=== PATIENT | female | born 1980 | race Caucasian/White ===

== ENCOUNTER → 2019-04-15 | Outpatient (CLI) | payer BC, OTHER | LOC: LAB FS 10:25 | PROVIDERS: ATTEND Family Medicine | DX: Z01.89 Encounter for other specified special examinations (principal) | CPT/HCPCS: 36415; 84702 ==

== ENCOUNTER → 2019-09-14 | Outpatient (CLI) | payer BC ==
[2019-09-14 11:01] LABS: BILIRUBIN,URINE NEGATIVE (NEGATIVE); CLARITY,URINE CLOUDY; COLOR,URINE YELLOW; GLUCOSE, URINE (UA) NEGATIVE (NEGATIVE); KETONES,URINE TRACE (NEGATIVE); LEUKOCYTE ESTERASE ,URINE TRACE (NEGATIVE); NITRITE,URINE NEGATIVE (NEGATIVE); PROTEIN,URINE TRACE (NEGATIVE)
[2019-09-14 11:02] LABS: BACTERIA,URINE MODERATE /HPF
== END ==
LOC: RAD FS 10:11
PROVIDERS: ATTEND Family Medicine
DX: R31.9 Hematuria, unspecified (principal)
CPT/HCPCS: 81000; 87088

== ENCOUNTER → 2019-11-03 | Outpatient (CLI) | payer BC ==
[2019-11-03 15:09] LABS: BUN/CREATININE RATIO 16; CARBON DIOXIDE 20 MMOL/L (21-32); CHLORIDE 102 MMOL/L (98-107); CREATININE SERUM 0.61 MG/DL (0.60-1.30); GFR ESTIMATED > 60; GLUCOSE 120 MG/DL (70-105); POTASSIUM 3.7 MMOL/L (3.6-5.0); SODIUM 135 MMOL/L (135-145)
[2019-11-03 15:10] LABS: ALANINE AMINOTRANSFERASE 11 U/L (0-55); ALBUMIN 3.3 GM/DL (3.2-4.5); ALKALINE PHOSPHATASE 124 U/L (40-136); BILIRUBIN,TOTAL < 0.2 MG/DL (0.1-1.0); TOTAL PROTEIN 6.3 GM/DL (6.4-8.2)
[2019-11-03 15:13] LABS: BASOPHILS % (AUTO) 0 % (0-10); EOSINOPHILS % (AUTO) 1 % (0-10); HEMATOCRIT 31 % (35-52); HEMOGLOBIN 10.3 G/DL (11.5-16.0); LYMPHOCYTES # (AUTO) 2.2 X 10^3 (1.0-4.0); LYMPHOCYTES % (AUTO) 25 % (12-44); MEAN CORPUSCULAR HEMOGLOBIN 30 PG (25-34); MEAN CORPUSCULAR HGB CONC 33 G/DL (32-36); MEAN CORPUSCULAR VOLUME 92 FL (80-99); MEAN PLATELET VOLUME 9.5 FL (7.4-10.4); MONOCYTES # (AUTO) 0.7 X 10^3 (0.0-1.0); MONOCYTES % (AUTO) 8 % (0-12); NEUTROPHILS # (AUTO) 5.9 X 10^3 (1.8-7.8); NEUTROPHILS % (AUTO) 66 % (42-75); PLATELET COUNT 315 10^3/uL (130-400); RED CELL DISTRIBUTION WIDTH 13.8 % (10.0-14.5); WHITE BLOOD COUNT 8.9 10^3/uL (4.3-11.0)
[2019-11-03 15:14] LABS: EOSINOPHILS # (AUTO) 0.1 10^3/uL (0.0-0.3)
[2019-11-04 08:22] LABS: URIC ACID 4.3 MG/DL (2.6-7.2)
== END ==
LOC: LAB FS 13:54
PROVIDERS: ATTEND Family Medicine
DX: O13.9 Gestational [pregnancy-induced] hypertension without significant proteinuria, unspecified trimester (principal)
CPT/HCPCS: 36415; 80053; 82570; 83615; 84156; 84550; 85025; 87081

== ENCOUNTER → 2019-11-10 | Outpatient (CLI) | payer BC ==
[2019-11-10 15:01] LABS: HEMATOCRIT 30 % (35-52); HEMOGLOBIN 9.9 G/DL (11.5-16.0); MEAN CORPUSCULAR HEMOGLOBIN 30 PG (25-34); MEAN CORPUSCULAR HGB CONC 33 G/DL (32-36); MEAN CORPUSCULAR VOLUME 91 FL (80-99); MEAN PLATELET VOLUME 8.9 FL (7.4-10.4); PLATELET COUNT 309 10^3/uL (130-400); RED CELL DISTRIBUTION WIDTH 14.1 % (10.0-14.5); WHITE BLOOD COUNT 8.9 10^3/uL (4.3-11.0)
[2019-11-10 15:02] LABS: BASOPHILS % (AUTO) 0 % (0-10); EOSINOPHILS # (AUTO) 0.1 10^3/uL (0.0-0.3); EOSINOPHILS % (AUTO) 1 % (0-10); LYMPHOCYTES # (AUTO) 2.4 X 10^3 (1.0-4.0); LYMPHOCYTES % (AUTO) 27 % (12-44); MONOCYTES # (AUTO) 0.6 X 10^3 (0.0-1.0); MONOCYTES % (AUTO) 7 % (0-12); NEUTROPHILS # (AUTO) 5.7 X 10^3 (1.8-7.8); NEUTROPHILS % (AUTO) 64 % (42-75)
[2019-11-10 15:28] LABS: CHLORIDE 100 MMOL/L (98-107); POTASSIUM 3.8 MMOL/L (3.6-5.0); SODIUM 134 MMOL/L (135-145)
[2019-11-10 15:29] LABS: BUN/CREATININE RATIO 16; CARBON DIOXIDE 20 MMOL/L (21-32); CREATININE SERUM 0.64 MG/DL (0.60-1.30); GFR ESTIMATED > 60; GLUCOSE 83 MG/DL (70-105)
[2019-11-10 15:31] LABS: ALANINE AMINOTRANSFERASE 11 U/L (0-55); ALBUMIN 3.5 GM/DL (3.2-4.5); ALKALINE PHOSPHATASE 124 U/L (40-136); BILIRUBIN,TOTAL 0.2 MG/DL (0.1-1.0); CALCIUM 8.7 MG/DL (8.5-10.1); TOTAL PROTEIN 6.3 GM/DL (6.4-8.2)
[2019-11-10 15:42] LABS: BAND NEUTROPHILS 2 %; BASOPHILS % (MANUAL) 0 %; EOSINOPHILS % (MANUAL) 1 %; LYMPHOCYTES % (MANUAL) 25 %; METAMYELOCYTES % 1 %; MONOCYTES % (MANUAL) 8 %; NEUTROPHILS % (MANUAL) 63 %
[2019-11-11 14:43] LABS: URIC ACID 4.5 MG/DL (2.6-7.2)
== END ==
LOC: LAB FS 14:37
PROVIDERS: ATTEND Family Medicine
DX: O13.9 Gestational [pregnancy-induced] hypertension without significant proteinuria, unspecified trimester (principal)
CPT/HCPCS: 36415; 80053; 83615; 84550; 85007; 85027

== ENCOUNTER 2019-11-26 18:26 | Inpatient (IN) | payer BC ==
[~2019-11-26] VITALS: Ht 167.7 cm; Wt 115.6 kg
[2019-11-26] VITALS (13 sets, daily range): BP systolic 108–202; BP diastolic 58–116
--- NOTE | 2019-11-26 18:26 | NUR ---
ITZ ALVAREZ V presented to unit from Home, accompanied by , with c/o LABOR. ITZ ALVAREZ V weighed, gowned, voided, and to bed. EFHM and TOCO applied, VS taken. ITZ ALVAREZ V oriented to bed controls, call light, TV, heat, and A/C controls.
--- NOTE | 2019-11-26 19:30 | NUR ---
notified of pt's arrival and exam. orders received.
[2019-11-26] MEDS ORDERED: OXYTOCIN PRE-MIX DRIP 500 ML IV SCH (19:36)
[2019-11-26 19:44] LABS: BASOPHILS % (AUTO) 0 % (0-10); EOSINOPHILS # (AUTO) 0.1 10^3/uL (0.0-0.3); EOSINOPHILS % (AUTO) 1 % (0-10); HEMATOCRIT 33 % (35-52); HEMOGLOBIN 10.7 G/DL (11.5-16.0); LYMPHOCYTES # (AUTO) 2.1 X 10^3 (1.0-4.0); LYMPHOCYTES % (AUTO) 24 % (12-44); MEAN CORPUSCULAR HEMOGLOBIN 30 PG (25-34); MEAN CORPUSCULAR HGB CONC 33 G/DL (32-36); MEAN CORPUSCULAR VOLUME 92 FL (80-99); MEAN PLATELET VOLUME 9.8 FL (7.4-10.4); MONOCYTES # (AUTO) 0.7 X 10^3 (0.0-1.0); MONOCYTES % (AUTO) 8 % (0-12); NEUTROPHILS # (AUTO) 5.9 X 10^3 (1.8-7.8); NEUTROPHILS % (AUTO) 67 % (42-75); PLATELET COUNT 268 10^3/uL (130-400); RED CELL DISTRIBUTION WIDTH 16.1 % (10.0-14.5); WHITE BLOOD COUNT 8.7 10^3/uL (4.3-11.0)
[2019-11-26] MEDS ORDERED: MINERAL OIL CONCENTRATE 99.9% 15 ML UDC TOP PRN (19:45)
[2019-11-26] MEDS: D5 LR IV SOLUTION 1,000 ML IV SCH (21:00)
[2019-11-26] MEDS ORDERED: ASPI-999 PO (21:02)
[2019-11-26] MEDS ORDERED: PREN1TAB19 PO (21:02)
[2019-11-26] MEDS ORDERED: DOCU-143 PO (21:02)
[2019-11-26] MEDS ORDERED: FERR325T18 PO (21:02)
[2019-11-26] MEDS ORDERED: FOLI0.8C PO (21:02)
[2019-11-26] MEDS ORDERED: SUFENTA 0.6MCG/ML BUPIVA 0.125 100 ML ONE (22:11)
[2019-11-26] MEDS ORDERED: BUPIVACAINE 0.25% 30 ML (SENSORCAINE) VIAL ONE (22:32)
[2019-11-26] MEDS ORDERED: fentaNYL INJECTION 100 MCG/2 ML AMP ONE (22:32)
[2019-11-26] MEDS ORDERED: ONDANSETRON 4 MG/2 ML (SDV) Z0FRAN IV PRN (23:15)
[2019-11-26] MEDS ORDERED: NALOXONE 0.4 MG/ML 1 ML (NARCAN) VIAL IV PRN ×2 (23:15)
[2019-11-26] MEDS ORDERED: EPIDURAL (SUFENTA 0.6MCG/ML BUPIVA 0.125%) 100 ML BAG EPI PRN (23:15)
[2019-11-26] MEDS ORDERED: METOCLOPRAMIDE INJ 10 MG/2 ML (REGLAN) IV PRN (23:15)
[2019-11-26] MEDS ORDERED: diphenhydrAMINE 50 MG/ML INJ (BENADRYL) IV PRN (23:15)
[2019-11-26] MEDS ORDERED: LACTATED RINGERS 1,000 ML IV SCH (23:15)
[2019-11-27] VITALS (46 sets, daily range): BP systolic 96–141; BP diastolic 37–77
[2019-11-27] MEDS: D5 LR IV SOLUTION 1,000 ML IV SCH ×2 (00:12→08:06)
--- NOTE | 2019-11-27 06:58 | History & Physical-OB ---
OB - Chief Complaint & HPI Date/Time Date of Admission: Date of Admission: Nov 26, 2019 at 6:26 pm Date seen by a Provider: Nov 27, 2019 Time Seen by a Provider: 07:00 Chief Complaint/History OB-Reason for Admission/Chief: Onset of Labor Hx : 4 Hx Para: 0 Expected Date of Delivery: Dec 02, 2019 Gestational Age in Weeks: 39 Gestational Age in Days: 1 Admission Nurse Assessment Rev: Yes History of Labs O pos Antibody neg RI RPR NR HIV NR HBsAg NR GC neg GBS neg Allergies and Home Medications Allergies Coded Allergies: vancomycin (Verified Allergy, Unknown, HIVES, 11/26/19) Home Medications Aspirin 81 Mg Tab.chew, 81 MG PO DAILY, (Reported) Docusate Sodium 100 Mg Capsule, 100 MG PO DAILY, (Reported) Ferrous Sulfate 325 Mg Tablet, 325 MG PO DAILY, (Reported) Folic Acid 0.8 Mg Capsule, 0.8 MG PO DAILY, (Reported) Vit/Iron Fumarate/FA 1 Each Tablet, 1 EACH PO DAILY, (Reported) Patient Home Medication List Home Medication List Reviewed: Yes OB - History Hx of Present Care: Yes Ultrasounds: Normal mid trimester US Obstetrical Complications: None, Other (late transfer of care from Dr. Milian) Medical Complications: None Patient Past Medical History n/a Social History/Family History Recent Infectious Disease Expo: No Alcohol Use: Denies Use Recreational Drug Use: No OB - Admission Exam Physical Exam Vitals: Vital Signs 11/27/19 11/27/19 11/27/19 00:45 04:30 06:30 Temp 36.4 Pulse 110 Resp 18 B/P (MAP) 115/77 (90) Pulse Ox 97 O2 Delivery Room Air HEENT: NCAT Heart: Rhythm Normal Lungs: Clear, Wheezes Extremities: Normal Reflexes: Normal Cervical Dilatation: 1cm Effacement: 75% Station: -1 Membranes: Ruptured Amniotic Fluid: Clear Heart Rate: 130's Accelerations: Accelerations Present Decelerations: No Decelerations Short Term Variability: Present Flaring Machine Operator Variability: Average (6-25) Contractions on Admission: 6-10 Minutes Apart Intensity: Mild Labs Laboratory Tests Test 11/26/19 19:25 Range/Units White Blood Count 8.7 4.3-11.0 10^3/uL Red Blood Count 3.57 L 4.35-5.85 10^6/uL Hemoglobin 10.7 L 11.5-16.0 G/DL Hematocrit 33 L 35-52 % Mean Corpuscular Volume 92 80-99 FL Mean Corpuscular Hemoglobin 30 25-34 PG Mean Corpuscular Hemoglobin Concent 33 32-36 G/DL Red Cell Distribution Width 16.1 H 10.0-14.5 % Platelet Count 268 130-400 10^3/uL Mean Platelet Volume 9.8 7.4-10.4 FL Neutrophils (%) (Auto) 67 42-75 % Lymphocytes (%) (Auto) 24 12-44 % Monocytes (%) (Auto) 8 0-12 % Eosinophils (%) (Auto) 1 0-10 % Basophils (%) (Auto) 0 0-10 % Neutrophils # (Auto) 5.9 1.8-7.8 X 10^3 Lymphocytes # (Auto) 2.1 1.0-4.0 X 10^3 Monocytes # (Auto) 0.7 0.0-1.0 X 10^3 Eosinophils # (Auto) 0.1 0.0-0.3 10^3/uL Basophils # (Auto) 0.0 0.0-0.1 10^3/uL OB - Assessment/Plan/Diagnosis Assessment Assessment: rupture of membranes Admission Dx 39 yo @ 39 weeks SROM GBS neg Admission Status: Inpatient Order (span 2 midnights) Reason for Inpatient Admission: Active labor at term Plan Plan: Expectant Management (Pitocin augmentation if contraction pattern is inadequate) JESUS OTT DO Nov 27, 2019 6:58 am
[2019-11-27] MEDS ORDERED: LIDOCAINE/EPI 2% 1:200,00 (XYLOCAINE) 10 ML VIAL ONE (08:06)
[2019-11-27] MEDS ORDERED: CITRIC ACID/SOB CIT (BICITRA) 30 ML UDC ONE (08:56)
[2019-11-27] MEDS ORDERED: ceFAZolin 2 GM/50 ML NS 50 ML ONE (08:56)
[2019-11-27] MEDS ORDERED: FAMOTIDINE 20MG/2ML IV (PEPCID) ONE (08:56)
[2019-11-27] MEDS ORDERED: LIDOCAINE PF 2% 5 ML (XYLOCAINE) VIAL ONE (08:59)
[2019-11-27] MEDS ORDERED: fentaNYL INJECTION 100 MCG/2 ML AMP ONE (09:07)
[2019-11-27] MEDS ORDERED: KETAMINE/NaCl 50 MG/5 ML SYRINGE (ED ONLY) ONE (09:13)
[2019-11-27] MEDS ORDERED: CITRIC ACID/SOB CIT (BICITRA) 30 ML UDC PO ONE (09:15)
[2019-11-27] MEDS ORDERED: FAMOTIDINE 20MG/2ML IV (PEPCID) IV ONE (09:15)
[2019-11-27] MEDS ORDERED: METOCLOPRAMIDE INJ 10 MG/2 ML (REGLAN) IV ONE (09:15)
--- NOTE | 2019-11-27 09:16 | Progress Note ---
Standard Progress Note Progress Notes/Assess & Plan Date Seen by a Provider: Nov 27, 2019 Time Seen by a Provider: 08:55 Progress/Assessment & Plan Patient progressed to complete and 0 station noted at approx 0645 this morning. When I evaluated the patient then, she had little to no urge or pressure with her epidural controlling pain well. She was allowed to labor down over the next hour. When we began pushing she began having repetitive variable decelerations, some deeper than others. She pushed in different positions, and a FSE was placed. No progression in station was noted, at a point when variable decels had dropped to 60s, approx 35 min into pushing. I discussed with patient intolerance of 2nd stage labor as well as CPD, likely OP presentation. Discussed PLTCS, risk, benefit, recovery, and anesthesia. After all questions were answered consent was obtained and patient taken to OR. JESUS OTT DO Nov 27, 2019 9:16 am
[2019-11-27] MEDS ORDERED: ONDANSETRON 4 MG/2 ML (SDV) Z0FRAN IVP PRN (09:30)
[2019-11-27] MEDS ORDERED: MEASLES,MUMPS,RUBELLA 1 EA INJ SC SCH (09:30)
[2019-11-27] MEDS ORDERED: TETANUS,DIPTH,PERTUSS P/F (BOOSTRIX) 0.5 ML VIAL IM SCH (09:30)
[2019-11-27] MEDS ORDERED: BUPIVACAINE 0.5% 30 ML (SENSORCAINE) VIAL ONE (09:48)
[2019-11-27] MEDS: OXYTOCIN PRE-MIX DRIP 500 ML IV SCH ×2 (10:00→10:15)
[2019-11-27] MEDS ORDERED: ceFAZolin 2 GM/50 ML NS 50 ML IV ONE (10:15)
[2019-11-27] MEDS ORDERED: LACTATED RINGERS 1,000 ML IV ONE (10:30)
--- NOTE | 2019-11-27 10:30 | Discharge Inst-Women's Service ---
Discharge Inst-Women's Serv Depart Medication/Instructions New, Converted or Re-Newed RX: RX on Chart Final Diagnosis POD 2 PLTCS Problems Reviewed?: Yes Consults/Follow Up Additional Follow Up: Yes Orders/Referrals Dr. Bean in 7-10 days and in 6 weeks Activity Activity: Activity as Tolerated Driving Instructions: No Driving for 1 Week NO SMOKING: NO SMOKING Nothing Inside Vagina: No Douching, No Council, No Tampons Diet Discharge Diet: No Restrictions Symptoms to Report to : Bleeding Excessive, Pain Increased, Fever Over 101 Degrees F, Vaginal Bleeding Increase, Questions/Concerns For Any Problems or Questions: Contact Your Physician Skin/Wound Care Infection Signs and Symptoms: Increased Redness, Foul Odor of Wound, Increased Drainage, Skin Itchy or Has a Rash, Increased Swelling, Temperature Above 101 F Operative Area Clean and Dry: Keep Incision Clean/Dry Stitches/Freedom/Dermabond: Dermabond, Care of Stitches Bathing Instructions: JESUS Mar DO Nov 27, 2019 10:30 am
[2019-11-27] MEDS ORDERED: DOCU-244 PO (10:32)
[2019-11-27] MEDS ORDERED: ACHD5005 PO (10:32)
[2019-11-27] MEDS ORDERED: FERR325T18 PO (10:32)
[2019-11-27] MEDS ORDERED: IBUP-844 PO (10:32)
[2019-11-27] MEDS ORDERED: ONDANSETRON 4 MG/2 ML (SDV) Z0FRAN ONE (10:36)
[2019-11-27] MEDS ORDERED: KETOROLAC 30 MG/ML VIAL ONE (10:36)
[2019-11-27] MEDS: KETOROLAC 30 MG/ML VIAL IV SCH ×3 (10:40→21:29)
[2019-11-27] MEDS: ACETAMINOPHEN 500 MG TAB (TYLENOL) PO PRN (15:09)
[2019-11-27] MEDS: CATHETER FLUSH 10 ML SYR IV SCH ×2 (16:12→21:30)
--- NOTE | 2019-11-27 16:48 | OPERATIVE REPORT ---
DATE OF SERVICE: PREOPERATIVE DIAGNOSES: 1. A 39-year-old G4, at 39 weeks and 2 days gestation. 2. intolerance to second stage of labor. 3. Cephalopelvic disproportion. POSTOPERATIVE DIAGNOSES: 1. A 39-year-old G4, at 39 weeks and 2 days gestation. 2. intolerance to second stage of labor. 3. Cephalopelvic disproportion. 4. Nuchal cord x2. SURGEON: Ronaldo Bean DO ANESTHESIA: Epidural, which was bolused. ESTIMATED BLOOD LOSS: 400 mL. URINE OUTPUT: 200 mL, lightly pink tinged at the end of the procedure. FLUIDS: 1200 mL of lactated Ringer's solution. FINDINGS: A live female weighing 6 pounds 13 ounces, Apgars 9 and 9. Grossly normal appearing bilateral fallopian tubes and ovaries. Multiple subserosal fibroids of the posterior uterine fundus and going over the top of the uterine fundus. SPECIMEN SENT: Placenta. INDICATIONS FOR PROCEDURE: This 39-year-old female is a patient that I had assumed care over from Dr. Milian due to a licensing issue. Her last two appointments in the office I have seen the patient, she had had a history of mildly elevated blood pressures; however, no reason or indication for induction prior to 39 weeks. We had planned for a 39-week induction and having the patient come in on Wednesday night; however, she presented with rupture of membranes at the time of her induction. Therefore, her labor was augmented with Pitocin. She reached a maximum dose of the 10 milliunits of Pitocin during the time of augmentation. She did receive an epidural for analgesia. She progressed to complete and 0 station, at which point I presented to evaluate the patient. This morning, she was found to be complete and a trial pushing was attempted. There was no movement of the station. Therefore, I will allow the patient to labor down over an hour. When I came back to evaluate the patient, we removed the Mosley catheter and began pushing. Despite adequate maternal effort, there was no movement of station and based on scalp sutures, I was anticipating this baby being occiput posterior presentation. The infant also started reflecting signs of distress with heart rate decelerations that were variable with contractions, some of them dropping as low as 60 beats per minute. I discussed with the patient the remoteness from delivery, the disproportion I was assuming based upon no progression of station as well as the nonreassuring status during pushing and an intolerance of second stage of labor. I discussed with the patient proceed with primary delivery. Risks of procedure were discussed with the patient in detail including risk of bleeding, infection, damage to surrounding structures including, but not limited to bowel, bladder, ureter, kidneys, possible need for reoperation, postoperative complications, recovery timeframe, risk to the infant, risk for possible need for blood transfusion and even . After everything was discussed with the patient in detail, consent was obtained, the patient was taken to the operating room. OPERATIVE REPORT IN DETAIL: Once in the operating room, epidural analgesia had been bolused and found to be adequate, placed in supine position with leftward tilt, prepped and draped in normal sterile fashion. A timeout was performed and anesthesia was tested. I then make a Pfannenstiel skin incision with a knife and carried down to underlying fascia using Bovie cautery. Fascial incision extended laterally using Bovie cautery. Superior aspect of fascial incision was then grasped with Kimberly clamps, tented up and dissected off the underlying rectus muscles. The inferior aspect of the fascial incision was then grasped with Kimberly clamps, tented upward and dissected off the underlying rectus muscles. Rectus muscle was then dissected down the midline using Salinas scissors, which exposed the peritoneum, which I entered bluntly and extended using blunt traction. Avery ring retractor was placed in the peritoneal incision, which offers excellent lateral sidewall retraction. I then identified the lower uterine segment, which was found to be thinned out and make a low transverse incision through the vesicouterine peritoneum and bluntly dissected off the lower uterine segment. I proceeded with myotomy until membranes were visualized, which fornix extended the uterine incision laterally and superiorly using bandage scissors. Amniotomy was performed. Clear fluid was noted. was found in vertex presentation, occiput right posterior. The 's head was elevated up to the incision where it was delivered. A nuchal cord was reduced x2. Anterior and posterior shoulders were delivered. Infant was then brought on to the operative field. The cord was doubly clamped and cut and was handed off to waiting nurses in attendance. Cord blood was collected. Three-vessel cord with intact placenta was delivered spontaneously thereafter. IV Pitocin was initiated to facilitate uterine contraction. Uterine fundus confirmed by manual massage. The uterus was then exteriorized and cleared of all endometrial clots and debris. I then proceeded with closing the uterine incision using 0 Vicryl suture in running locked fashion. Second layer of imbricating 0 Monocryl was placed. Excellent hemostasis was noted after doing this. I then placed the uterus back within the pelvis and copiously irrigated the pelvis using normal saline. There was no active bleeding noted from any of my dissection planes. I placed Interceed antiadhesive over my low transverse incision and proceeded with closing the peritoneum after I removed the Avery ring retractor. The peritoneum was reapproximated using 3-0 Vicryl suture in running fashion. Rectus muscle was reapproximated using 3-0 Vicryl suture in interrupted fashion. The fascia was reapproximated using 0 Vicryl suture in running fashion. Subcutaneous tissue was reapproximated using 3-0 plain interrupted subcutaneous stitch and the skin was reapproximated using 4-0 Monocryl in a running subcuticular. Dermabond was applied to incision and sterile dressing with adhesive white tape. The patient tolerated the procedure well and was taken to recovery area in stable condition. Lap and sponge counts were correct at the end of the procedure. Instrument count was correct as well. Two grams of Ancef were given preoperatively for infection prophylaxis. Job ID: [id number] DocumentID: [id number] Dictated Date: 11/27/2019 11:03:05 Dining Chair Seat Cushion Trimmer Date: 11/27/2019 16:47:54 Dictated By: RONALDO BEAN DO
[2019-11-27] MEDS: IBUPROFEN 600 MG (MOTRIN) TAB PO SCH ×2 (19:51→19:52)
[2019-11-27] MEDS: METOCLOPRAMIDE 10 MG (REGLAN) TAB PO SCH ×2 (19:52→21:27)
[2019-11-27] MEDS: DOCUSATE SODIUM 100 MG (COLACE) CAP PO SCH (21:27)
[2019-11-27] MEDS: HYDROcodone/APAP 5 MG/325 MG (LORTAB) TAB PO PRN (21:33)
[2019-11-27] MEDS ORDERED: WITCH HAZEL(TUCKS) 40 EA JAR ONE (21:38)
[2019-11-27] MEDS ORDERED: BENZOCAINE/MENTHOL (DERMOPLAST) 60 ML CAN TP ONE (21:38)
--- NOTE | 2019-11-27 21:38 | NUR ---
Pt. up to BR on own, tolerated very well. Dermoplast offered & given for c/o pain/burning when voiding.
[2019-11-28 00:15] VITALS: BP 84/57
[2019-11-28] MEDS: IBUPROFEN 600 MG (MOTRIN) TAB PO SCH ×4 (02:53→20:43)
[2019-11-28] MEDS ORDERED: BENZOCAINE/MENTHOL (DERMOPLAST) 60 ML CAN TP PRN (03:00)
[2019-11-28 03:41] VITALS: BP 112/70
[2019-11-28] MEDS: HYDROcodone/APAP 5 MG/325 MG (LORTAB) TAB PO PRN ×3 (03:41→20:46)
[2019-11-28] MEDS: METOCLOPRAMIDE 10 MG (REGLAN) TAB PO SCH ×5 (03:41→23:42)
[2019-11-28] MEDS: KETOROLAC 30 MG/ML VIAL IV SCH (03:41)
[2019-11-28] MEDS: CATHETER FLUSH 10 ML SYR IV SCH (03:41)
[2019-11-28 06:22] LABS: BASOPHILS % (AUTO) 0 % (0-10); EOSINOPHILS # (AUTO) 0.1 10^3/uL (0.0-0.3); EOSINOPHILS % (AUTO) 1 % (0-10); HEMATOCRIT 27 % (35-52); HEMOGLOBIN 8.7 G/DL (11.5-16.0); LYMPHOCYTES # (AUTO) 1.9 X 10^3 (1.0-4.0); LYMPHOCYTES % (AUTO) 18 % (12-44); MEAN CORPUSCULAR HEMOGLOBIN 30 PG (25-34); MEAN CORPUSCULAR HGB CONC 32 G/DL (32-36); MEAN CORPUSCULAR VOLUME 93 FL (80-99); MEAN PLATELET VOLUME 8.9 FL (7.4-10.4); MONOCYTES # (AUTO) 0.6 X 10^3 (0.0-1.0); MONOCYTES % (AUTO) 5 % (0-12); NEUTROPHILS # (AUTO) 8.1 X 10^3 (1.8-7.8); NEUTROPHILS % (AUTO) 76 % (42-75); PLATELET COUNT 203 10^3/uL (130-400); RED CELL DISTRIBUTION WIDTH 16.6 % (10.0-14.5); WHITE BLOOD COUNT 10.6 10^3/uL (4.3-11.0)
--- NOTE | 2019-11-28 07:26 | Postpartum Progress Note ---
RYLEE KIRAN,MED STUDENT 11/28/19 0726: Note Note Day # 1 Subjective: Patient is without complaints. Ambulating, voiding without difficulty, has not stooled yet. Tolerating a regular diet without nausea or vomiting. Normal lochia. Pain is well controlled with oral pain medications. Objective: Physical Exam: General - Alert and oriented, no apparent distress Abdomen - Soft, appropriately tender to palpation, non-distended, fundus firm at umbilicus Extremities - no edema, negative Wale's bilaterally Incision - c/d/i Assessment: post- day # 1, status post urgent CD Recovering well, hemodynamically stable Acute blood loss anemia Plan: Routine care. Encourage breast feeding. Encourage ambulation. Ferrous sulfate supplementation. Plan for discharge tomorrow Vitals - Labs Vital Signs - I&O Vital Signs Date Time Temp Pulse Resp B/P (MAP) Pulse Ox O2 Delivery O2 Flow Rate FiO2 11/28/19 03:41 36.5 84 18 112/70 (84) 97 Room Air 11/28/19 00:15 36.3 89 18 84/57 (66) 97 Room Air 11/27/19 20:15 36.9 94 18 130/75 (93) 98 Room Air 11/27/19 16:00 36.7 92 16 124/56 (78) 96 Room Air 11/27/19 12:20 36.5 86 16 112/54 (73) 96 Room Air 11/27/19 11:29 Room Air 10.00 11/27/19 11:29 37.1 15 127/67 (87) 99 Room Air 11/27/19 11:15 Room Air 11/27/19 11:15 36.8 14 122/37 (65) 99 Room Air 11/27/19 11:00 Room Air 10.00 11/27/19 11:00 37.2 16 120/74 (89) 99 Room Air 11/27/19 10:45 36.9 17 127/76 (93) 100 Room Air 11/27/19 10:45 Room Air 11/27/19 10:29 37.1 19 123/68 (86) 100 Room Air 11/27/19 09:23 Non Rebreather 10.00 11/27/19 09:15 109 18 109/55 (73) 100 Non Rebreather 10.00 11/27/19 09:00 111 18 141/60 (87) Non Rebreather 10.00 11/27/19 08:45 121 18 114/54 (74) Non Rebreather 10.00 11/27/19 08:30 123 18 128/58 (81) Non Rebreather 10.00 11/27/19 08:15 122 18 136/62 (86) Room Air 11/27/19 08:00 105 18 121/59 (79) Room Air 11/27/19 07:45 36.2 109 18 120/57 (78) Room Air 11/27/19 07:30 101 18 127/67 (87) Room Air I & O 11/28/19 07:00 Intake Total 3800 ml Output Total 2700 ml Balance 1100 ml Labs Laboratory Tests 11/28/19 06:05: White Blood Count 10.6, Red Blood Count 2.89L, Hemoglobin 8.7L, Hematocrit 27L, Mean Corpuscular Volume 93, Mean Corpuscular Hemoglobin 30, Mean Corpuscular Hemoglobin Concent 32, Red Cell Distribution Width 16.6H, Platelet Count 203, Mean Platelet Volume 8.9, Neutrophils (%) (Auto) 76H, Lymphocytes (%) (Auto) 18, Monocytes (%) (Auto) 5, Eosinophils (%) (Auto) 1, Basophils (%) (Auto) 0, Neutrophils # (Auto) 8.1H, Lymphocytes # (Auto) 1.9, Monocytes # (Auto) 0.6, Eosinophils # (Auto) 0.1, Basophils # (Auto) 0.0 RONALDO OTT DO 11/28/19 0832: Note Note Verification and Attestation of Medical Student E/M Service POD 1 PLTCS Acute blood loss anemia A medical student performed and documented this service in my presence. I revi ewed and verified all information documented by the medical student and made modifications to such information, when appropriate. I personally performed the physical exam and medical decision making. Ronaldo Ott, Nov 28, 2019,08:32 RYLEE KIRAN,MED STUDENT Nov 28, 2019 07:26 RONALDO OTT DO Nov 28, 2019 08:32
[2019-11-28 08:00] VITALS: BP 107/55
--- NOTE | 2019-11-28 08:00 | NUR ---
A.M. ASSESSMENT COMPLETED. VSS. CARING FOR IN ROOM. ENCOURAGED AMBULATION X4 IN HALLS TODAY.
[2019-11-28] MEDS: FERROUS SULF 325 MG (IRON) TAB PO SCH (08:46)
[2019-11-28] MEDS ORDERED: PRENATAL VITAMIN 1 EA TAB PO ONE (08:46)
[2019-11-28] MEDS: DOCUSATE SODIUM 100 MG (COLACE) CAP PO SCH ×2 (08:46→20:43)
[2019-11-28] MEDS: ACETAMINOPHEN 500 MG TAB (TYLENOL) PO PRN ×2 (08:48→17:58)
[2019-11-28] MEDS: PRENATAL VITAMIN 1 EA TAB PO SCH (08:51)
[2019-11-28 12:49] VITALS: BP 101/63
--- NOTE | 2019-11-28 14:00 | NUR ---
CARING FOR INFANT IN ROOM. GOOD INTERACTION NOTED. OFFERS NO COMPLAINTS. SPOUSE AT BEDSIDE.
--- NOTE | 2019-11-28 15:11 | NUR ---
LORTAB 1 P.O. FOR C/O ABD PAIN.
[2019-11-28 15:40] VITALS: BP 101/63
--- NOTE | 2019-11-28 16:00 | NUR ---
STATES FEELING MUCH BETTER.
--- NOTE | 2019-11-28 18:00 | NUR ---
STORK MEAL SERVED. VISITOR AT BEDSIDE.
[2019-11-28 21:15] VITALS: BP 112/69
[2019-11-29] MEDS: IBUPROFEN 600 MG (MOTRIN) TAB PO SCH ×2 (03:10→09:57)
[2019-11-29 03:35] VITALS: BP 128/77
[2019-11-29] MEDS: METOCLOPRAMIDE 10 MG (REGLAN) TAB PO SCH (05:48)
[2019-11-29] MEDS: HYDROcodone/APAP 5 MG/325 MG (LORTAB) TAB PO PRN (06:24)
--- NOTE | 2019-11-29 07:57 | Postpartum Progress Note ---
Note Note Day # 2 Subjective: Patient is without complaints. Ambulating, voiding. Tolerating a regular diet without nausea or vomiting. Normal lochia. Pain is well controlled with oral pain medications. Objective: Physical Exam: General - Alert and oriented, no apparent distress Abdomen - Soft, appropriately tender to palpation, non-distended, fundus firm at umbilicus Extremities - no edema, negative Wale's bilaterally Incision- c/d/i Assessment: POD 2 PLTCS Acute blood loss anemia Plan: Routine care. Encourage breast feeding. Encourage ambulation. Ferrous sulfate supplementation. Plan for discharge today Vitals - Labs Vital Signs - I&O Vital Signs Date Time Temp Pulse Resp B/P (MAP) Pulse Ox O2 Delivery O2 Flow Rate FiO2 11/29/19 03:35 36.6 82 18 128/77 (94) 98 Room Air 11/28/19 21:15 36.6 90 18 112/69 (83) 98 Room Air 11/28/19 15:40 36.8 96 16 101/63 (76) 97 Room Air 11/28/19 12:49 37.1 86 18 101/63 (76) 95 Room Air 11/28/19 08:00 36.2 81 16 107/55 (72) 97 Room Air I & O 11/29/19 07:00 Intake Total 2700 ml Output Total 2930 ml Balance -230 ml JESUS OTT DO Nov 29, 2019 07:57
[2019-11-29 08:00] VITALS: BP 130/62
--- NOTE | 2019-11-29 08:00 | NUR ---
A.M. ASSESSMENT COMPLETED. VSS. CARING FOR IN ROOM.
[2019-11-29] MEDS: DOCUSATE SODIUM 100 MG (COLACE) CAP PO SCH (09:57)
[2019-11-29] MEDS: FERROUS SULF 325 MG (IRON) TAB PO SCH (09:57)
[2019-11-29] MEDS: PRENATAL VITAMIN 1 EA TAB PO SCH (09:58)
[2019-11-29] MEDS: ACETAMINOPHEN 500 MG TAB (TYLENOL) PO PRN (09:58)
--- NOTE | 2019-11-29 10:00 | NUR ---
CARING FOR INFANT IN ROOM. GOOD INTERACTION NOTED.
--- NOTE | 2019-11-29 11:40 | NUR ---
DISCHARGE INSTRUCTIONS REVIEWED WITH COPY TO PT. STATES UNDERSTANDING OF ALL INSTRUCTIONS AND NEED TO F/U SCHEDULED AND NEEDED.
--- NOTE | 2019-11-29 12:15 | NUR ---
EATING LUNCH BEFORE LEAVES AND WNTS TO FEED BABY BEFORE GOING HOME.
[2019-11-29 13:50] VITALS: BP 130/62
--- NOTE | 2019-11-29 13:50 | NUR ---
DISMISSED AMB FROM [facility] WITH IN STABLE CONDITION TO FAMILY CAR ACC BY SPOUSE AND [facility] STAFF.
== END 2019-11-29 13:50 | disposition home or self-care (01) | DRG 787 ==
LOC: LDRP 18:26
PROVIDERS: ADMIT Obstetrics & Gynecology; ATTEND Obstetrics & Gynecology
PROC: 10D00Z1 Extraction of Products of Conception, Low, Open Approach (ICD-10-PCS; principal; 2019-11-27 09:25)
DX: O13.4 Gestational [pregnancy-induced] hypertension without significant proteinuria, complicating childbirth (principal); O76 Abnormality in fetal heart rate and rhythm complicating labor and delivery; O64.0XX0 Obstructed labor due to incomplete rotation of fetal head, not applicable or unspecified; O69.81X0 Labor and delivery complicated by cord around neck, without compression, not applicable or unspecified; O90.81 Anemia of the puerperium; D62 Acute posthemorrhagic anemia; O34.13 Maternal care for benign tumor of corpus uteri, third trimester; D25.2 Subserosal leiomyoma of uterus; O65.4 Obstructed labor due to fetopelvic disproportion, unspecified; Z3A.39 39 weeks gestation of pregnancy; Z37.0 Single live birth; Z23 Encounter for immunization
CPT/HCPCS: 36415; 85025; 86850; 86900; 86901; 99212